=== PATIENT | male | born 1940 | race Caucasian/White ===

== ENCOUNTER 2016-09-02 10:17 | Emergency (ER) | payer OTHER ==
[~2016-09-02] VITALS: Ht 180.3 cm; Wt 88.5 kg
[~2016-09-02 10:17] MED LIST: ATORVASTATIN CA40 MG PO; BYSTOLIC20 MG PO; CENTRUM SILVER1 EAC2 PO; CO Q-10100 MG; FIBER0.52 G1; KEFLEX500 M1 PO; VALSARTAN-HCTZ1 EAC3 PO; VITAMIN D400 UNIT PO; VITAMINC500
[2016-09-02] MEDS ORDERED: PRILOSEC 20 MG20 MG PO (10:49)
[2016-09-02] MEDS ORDERED: ULTRAM 50MG TAB50 MG PO (11:07)
[2016-09-02 11:27] VITALS: BP 128/74
== END 2016-09-02 11:28 | disposition home or self-care (01) ==
LOC: ER 10:17
DX: S92.312A Displaced fracture of first metatarsal bone, left foot, initial encounter for closed fracture (principal); I10 Essential (primary) hypertension; F10.99 Alcohol use, unspecified with unspecified alcohol-induced disorder; K21.9 Gastro-esophageal reflux disease without esophagitis; Z86.19 Personal history of other infectious and parasitic diseases; Z90.79 Acquired absence of other genital organ(s); Z85.46 Personal history of malignant neoplasm of prostate; W20.8XXA Other cause of strike by thrown, projected or falling object, initial encounter; Y93.89 Activity, other specified; Y92.89 Other specified places as the place of occurrence of the external cause; Y99.8 Other external cause status